=== PATIENT | male | born 1980 | race African-American/Black ===

== ENCOUNTER 2017-05-01 07:28 | Emergency (ER) | payer SELFPAY ==
[~2017-05-01] VITALS: Ht 185.4 cm; Wt 90.0 kg
[~2017-05-01 07:28] MED LIST: BACTRIM DS1 TAB PO; FLEXERIL PO; NORCO1 TA1 PO; ULTRAM50 M1 PO; UNKNOWN ANTIBIOTIC
[2017-05-01] MEDS ORDERED: NORCO1 TA1 PO (07:34)
[2017-05-01 07:59] VITALS: BP 148/98
== END 2017-05-01 08:00 | disposition home or self-care (01) | DRG 951 ==
LOC: ED 07:28
DX: Z03.89 Encounter for observation for other suspected diseases and conditions ruled out (principal)